=== PATIENT | male | born 1970 | race Caucasian/White ===

== ENCOUNTER 2020-06-29 14:05 | Emergency (ER) | payer MEDICAID ==
[~2020-06-29] VITALS: Ht 177.8 cm; Wt 78.0 kg
[2020-06-29 16:41] VITALS: BP 121/86
== END 2020-06-29 16:43 | disposition home or self-care (01) ==
LOC: ER 14:05
DX: K46.9 Unspecified abdominal hernia without obstruction or gangrene (principal); Z96.659 Presence of unspecified artificial knee joint; Z98.890 Other specified postprocedural states
CPT/HCPCS: 99281